=== PATIENT | female | born 1930 | race Caucasian/White ===

== ENCOUNTER → 2016-11-14 | Outpatient (REF) | payer MEDICARE ==
[~2016-11-14] MED LIST: ADV100INH INH; ALLO100T PO; AMBI5TAB PO; ASPI325T PO; BIMA01SOL OU; ELIQ2.5T PO; INSUDET SC; INSULANT SC; LASI20TA PO; LIPI10TA PO; METO25TA74 PO; MICA80TA PO; NORCOTAB PO; PREG50CA PO; PRIL20CA9 PO; PROT1TAB2 PO; SERO1TAB3 PO; SEVE40CA PO; SITA50TAB PO; TIMO5OPG OU; TIOT18INH INH; TRAM37.53 PO; XANA0.25 PO; XOPEAER INH
[2016-11-14 13:06] LABS: MEAN CORPUSCULAR HEMOGLOBIN 33.9 pg (27.0-33.0); MEAN CORPUSCULAR HGB CONC 34.5 g/dl (32.0-36.5); MEAN CORPUSCULAR VOLUME 98.1 fl (80.0-96.0); RED CELL DISTRIBUTION WIDTH 12.6 % (11.5-14.5); WHITE BLOOD COUNT 10.8 K/mm3 (4.0-10.0)
[2016-11-14 13:26] LABS: ALBUMIN 3.8 GM/DL (3.2-5.2); ALBUMIN/GLOBULIN RATIO 1.06 (1.00-1.93); BILIRUBIN,TOTAL 0.8 MG/DL (0.2-1.0); CALCIUM LEVEL 9.4 MG/DL (8.8-10.2); CREATININE FOR GFR 1.3 MG/DL (0.55-1.02); GLOMERULAR FILTRATION RATE 41.2 (>32); TOTAL PROTEIN 7.4 GM/DL (6.4-8.2)
== END | disposition home or self-care (01) ==
LOC: SKLAB6 08:00
DX: I48.91 Unspecified atrial fibrillation (principal); G30.9 Alzheimer's disease, unspecified; N39.0 Urinary tract infection, site not specified; F02.80 Dementia in other diseases classified elsewhere, unspecified severity, without behavioral disturbance, psychotic disturbance, mood disturbance, and anxiety

== ENCOUNTER → 2016-11-15 | Outpatient (REF) | payer MEDICARE ==
[~2016-11-15] MED LIST changes: +PRIL20CA PO; -PRIL20CA9 PO
== END | disposition home or self-care (01) ==
LOC: SKLAB6 10:30
DX: R05 Cough (principal)

== ENCOUNTER → 2016-11-15 | Outpatient (REF) | payer MEDICARE ==
[2016-11-15 08:52] LABS: MEAN CORPUSCULAR HEMOGLOBIN 33.1 pg (27.0-33.0); MEAN CORPUSCULAR HGB CONC 33.9 g/dl (32.0-36.5); MEAN CORPUSCULAR VOLUME 97.6 fl (80.0-96.0); RED CELL DISTRIBUTION WIDTH 13.5 % (11.5-14.5); WHITE BLOOD COUNT 9.2 K/mm3 (4.0-10.0)
[2016-11-15 09:23] LABS: CALCIUM LEVEL 8.6 MG/DL (8.8-10.2); CREATININE FOR GFR 1.17 MG/DL (0.55-1.02); GLOMERULAR FILTRATION RATE 46.6 (>32); POTASSIUM SERUM 3.5 MEQ/L (3.5-5.1)
== END ==
LOC: SKLAB6 07:00
DX: G30.9 Alzheimer's disease, unspecified (principal)

== ENCOUNTER → 2016-11-19 | Outpatient (REF) ==
[~2016-11-19] MED LIST changes: -PRIL20CA PO; +PRIL20CA9 PO
== END ==
LOC: SKLAB6 19:25
DX: R05 Cough (principal)

== ENCOUNTER → 2016-11-19 | Outpatient (REF) | payer MEDICARE ==
[2016-11-19 22:05] LABS: MEAN CORPUSCULAR HEMOGLOBIN 32.7 pg (27.0-33.0); MEAN CORPUSCULAR HGB CONC 33.3 g/dl (32.0-36.5); MEAN CORPUSCULAR VOLUME 98.1 fl (80.0-96.0); RED CELL DISTRIBUTION WIDTH 13.4 % (11.5-14.5); WHITE BLOOD COUNT 20.6 K/mm3 (4.0-10.0)
[2016-11-19 22:26] LABS: CALCIUM LEVEL 9.8 MG/DL (8.8-10.2); CREATININE FOR GFR 1.24 MG/DL (0.55-1.02); GLOMERULAR FILTRATION RATE 43.6 (>32); POTASSIUM SERUM 3.4 MEQ/L (3.5-5.1)
== END ==
LOC: SKLAB6 21:27
DX: R50.9 Fever, unspecified (principal); E86.0 Dehydration; R41.82 Altered mental status, unspecified

== ENCOUNTER → 2016-11-19 | Outpatient (CLI) | payer MEDICARE ==
--- NOTE | 2016-11-19 23:50 | REPUSA ---
Clinical history: Congestion. Comparison: None. Findings: The mediastinum and cardiac silhouette are within normal limits. There is minimal left lowe r lobe infiltrate The lungs are clear. No pleural effusion or pneumothorax is seen. The osseous struc tures and soft tissues are unremarkable. Impression: Minimal left lower lobe infiltrate.
== END ==
LOC: SKLAB6 09:23
DX: R05 Cough (principal); R50.9 Fever, unspecified; E86.0 Dehydration; R41.82 Altered mental status, unspecified

== ENCOUNTER → 2016-11-20 | Outpatient (REF) | LOC: SKLAB6 16:58 | DX: R50.9 Fever, unspecified (principal); E86.0 Dehydration; R05 Cough ==

== ENCOUNTER → 2016-11-21 | Outpatient (REF) | payer MEDICARE ==
--- NOTE | 2016-11-21 12:27 | REP ---
RIGHT KNEE, FOUR VIEWS: HISTORY: Pain. There is no acute fracture or dislocation. There is narrowing of the joint spaces with associated osteophyte formation. Chondrocalcinosis is present. IMPRESSION: Degenerative change as described above. Signed by Ted Joel MD 11/21/2016 12:32 P
--- NOTE | 2016-11-21 12:28 | REP ---
RIGHT ANKLE, FOUR VIEWS: HISTORY: Pain. There is no acute fracture or dislocation. The joint space is normal in appearance. IMPRESSION: There is no acute fracture or dislocation. Signed by Ted Joel MD 11/21/2016 12:32 P
--- NOTE | 2016-11-21 12:31 | REP ---
RIGHT FOOT, FOUR VIEWS: HISTORY: Pain. There is no acute fracture or dislocation. There is narrowing of the first metatarsophalangeal joint space. IMPRESSION: Degenerative change as described above. Signed by Ted Joel MD 11/21/2016 12:32 P
--- NOTE | 2016-11-21 15:49 | REP ---
RIGHT FEMUR, TWO VIEWS: HISTORY: Pain. There is no acute fracture or dislocation. There is narrowing of the hip joint space. There is narrowing of the knee joint space with associated osteophyte formation. Chondrocalcinosis is present. An osteophyte is present on the patella. IMPRESSION: Degenerative change as described above. Signed by Ted Joel MD 11/21/2016 04:06 P
--- NOTE | 2016-11-21 15:50 | REP ---
RIGHT HIP, THREE VIEWS: HISTORY: Pain. There is no acute fracture or dislocation. There is narrowing of the joint space. A calcified density is present lateral to the femoral head. This represents ligamentous or tendon calcification. IMPRESSION: Degenerative change as described above. Signed by Ted Joel MD 11/21/2016 04:06 P
== END ==
LOC: SKLAB6 13:00
DX: M79.604 Pain in right leg (principal)

== ENCOUNTER → 2016-12-09 | Outpatient (REF) | LOC: SKLAB6 13:00 | DX: R19.7 Diarrhea, unspecified (principal) ==

== ENCOUNTER → 2016-12-13 | Outpatient (REF) | payer MEDICARE ==
[2016-12-13 08:36] LABS: MEAN CORPUSCULAR HEMOGLOBIN 32.9 pg (27.0-33.0); MEAN CORPUSCULAR HGB CONC 33.2 g/dl (32.0-36.5); MEAN CORPUSCULAR VOLUME 99.1 fl (80.0-96.0); WHITE BLOOD COUNT 6.5 K/mm3 (4.0-10.0)
[2016-12-13 08:55] LABS: ALBUMIN 2.9 GM/DL (3.2-5.2); ALBUMIN/GLOBULIN RATIO 0.94 (1.00-1.93); BILIRUBIN,TOTAL 0.8 MG/DL (0.2-1.0); CALCIUM LEVEL 8.8 MG/DL (8.8-10.2); CREATININE FOR GFR 0.94 MG/DL (0.55-1.02); POTASSIUM SERUM 4.1 MEQ/L (3.5-5.1)
== END ==
LOC: SKLAB6 07:00
DX: E11.9 Type 2 diabetes mellitus without complications (principal)

== ENCOUNTER → 2017-01-10 | Outpatient (REF) | payer MEDICARE ==
[2017-01-10 09:31] LABS: MEAN CORPUSCULAR HEMOGLOBIN 31.8 pg (27.0-33.0); MEAN CORPUSCULAR HGB CONC 32.4 g/dl (32.0-36.5); RED CELL DISTRIBUTION WIDTH 13.4 % (11.5-14.5); WHITE BLOOD COUNT 9.4 K/mm3 (4.0-10.0)
[2017-01-10 09:58] LABS: CREATININE FOR GFR 1.06 MG/DL (0.55-1.02); GLOMERULAR FILTRATION RATE 52.2 (>32); POTASSIUM SERUM 3.9 MEQ/L (3.5-5.1)
== END ==
LOC: SKLAB6 07:00
DX: I48.91 Unspecified atrial fibrillation (principal); G30.9 Alzheimer's disease, unspecified

== ENCOUNTER → 2017-02-14 | Outpatient (REF) | payer MEDICARE ==
[2017-02-14 08:35] LABS: MEAN CORPUSCULAR HEMOGLOBIN 32.4 pg (27.0-33.0); MEAN CORPUSCULAR HGB CONC 33.3 g/dl (32.0-36.5); MEAN CORPUSCULAR VOLUME 97.3 fl (80.0-96.0); RED CELL DISTRIBUTION WIDTH 13.1 % (11.5-14.5); WHITE BLOOD COUNT 6.2 K/mm3 (4.0-10.0)
[2017-02-14 08:49] LABS: ANION GAP 8 MEQ/L (8-16); BLOOD UREA NITROGEN 19 MG/DL (7-18); CALCIUM LEVEL 9.2 MG/DL (8.8-10.2); CARBON DIOXIDE LEVEL 29 MEQ/L (21-32); CHLORIDE LEVEL 106 MEQ/L (98-107); CREATININE FOR GFR 0.79 MG/DL (0.55-1.02); GLOMERULAR FILTRATION RATE > 60.0 (>32); GLUCOSE, FASTING 107 MG/DL (83-110); POTASSIUM SERUM 3.8 MEQ/L (3.5-5.1); SODIUM LEVEL 143 MEQ/L (136-145)
== END ==
LOC: SKLAB6 07:00
DX: I48.91 Unspecified atrial fibrillation (principal); G30.9 Alzheimer's disease, unspecified; Z79.899 Other long term (current) drug therapy

== ENCOUNTER → 2017-02-20 | Outpatient (REF) | payer MEDICARE ==
[2017-02-20 12:10] LABS: MEAN CORPUSCULAR HEMOGLOBIN 32.8 pg (27.0-33.0); MEAN CORPUSCULAR HGB CONC 33.6 g/dl (32.0-36.5); MEAN CORPUSCULAR VOLUME 97.5 fl (80.0-96.0); RED CELL DISTRIBUTION WIDTH 13.2 % (11.5-14.5); WHITE BLOOD COUNT 5.9 K/mm3 (4.0-10.0)
[2017-02-20 13:01] LABS: CALCIUM LEVEL 8.2 MG/DL (8.8-10.2); CREATININE FOR GFR 1.03 MG/DL (0.55-1.02); POTASSIUM SERUM 3.8 MEQ/L (3.5-5.1)
== END ==
LOC: SKLAB6 13:00
DX: A41.9 Sepsis, unspecified organism (principal)

== ENCOUNTER → 2017-03-14 | Outpatient (REF) | payer MEDICARE ==
[2017-03-14 09:11] LABS: MEAN CORPUSCULAR HEMOGLOBIN 33.9 pg (27.0-33.0); MEAN CORPUSCULAR HGB CONC 33.4 g/dl (32.0-36.5); MEAN CORPUSCULAR VOLUME 101.4 fl (80.0-96.0); RED CELL DISTRIBUTION WIDTH 13.2 % (11.5-14.5); WHITE BLOOD COUNT 8.5 K/mm3 (4.0-10.0)
[2017-03-14 09:40] LABS: ANION GAP 6 MEQ/L (8-16); BLOOD UREA NITROGEN 24 MG/DL (7-18); CALCIUM LEVEL 9.1 MG/DL (8.8-10.2); CARBON DIOXIDE LEVEL 32 MEQ/L (21-32); CHLORIDE LEVEL 105 MEQ/L (98-107); CREATININE FOR GFR 0.93 MG/DL (0.55-1.02); GLOMERULAR FILTRATION RATE > 60.0 (>32); GLUCOSE, FASTING 55 MG/DL (83-110); POTASSIUM SERUM 3.7 MEQ/L (3.5-5.1); SODIUM LEVEL 143 MEQ/L (136-145)
== END ==
LOC: SKLAB6 07:00
DX: G30.9 Alzheimer's disease, unspecified (principal)

== ENCOUNTER → 2017-06-03 | Outpatient (CLI) | payer MEDICARE ==
[~2017-06-03] MED LIST changes: +LEVAINH INH; +METO1TAB32 PO; -METO25TA74 PO; -XOPEAER INH
== END ==
LOC: M LAB 08:04
DX: R07.9 Chest pain, unspecified (principal); Z53.9 Procedure and treatment not carried out, unspecified reason

== ENCOUNTER → 2017-06-03 | Outpatient (REF) | payer MEDICARE ==
[2017-06-03 07:53] LABS: MEAN CORPUSCULAR HEMOGLOBIN 34.6 pg (27.0-33.0); MEAN CORPUSCULAR VOLUME 101.6 fl (80.0-96.0); RED CELL DISTRIBUTION WIDTH 13.8 % (11.5-14.5); WHITE BLOOD COUNT 8.6 K/mm3 (4.0-10.0)
[2017-06-03 08:13] LABS: ANION GAP 7 MEQ/L (8-16); BLOOD UREA NITROGEN 19 MG/DL (7-18); CALCIUM LEVEL 8.7 MG/DL (8.8-10.2); CARBON DIOXIDE LEVEL 31 MEQ/L (21-32); CHLORIDE LEVEL 100 MEQ/L (98-107); CREATININE FOR GFR 0.88 MG/DL (0.55-1.02); GLOMERULAR FILTRATION RATE > 60.0 (>32); GLUCOSE, FASTING 253 MG/DL (83-110); POTASSIUM SERUM 4.2 MEQ/L (3.5-5.1); SODIUM LEVEL 138 MEQ/L (136-145)
--- NOTE | 2017-06-03 10:36 | REP ---
REASON: Chest pain. COMPARISON: None. There is a patchy opacity in the right lower lobe. The lung cuello are otherwise clear and unchanged from the prior exam of 11/19/2016, a portable exam. The heart is not enlarged and the pleural angles are sharp. There is no change in the osseous structures. Spinal degenerative changes are note status quo. IMPRESSION: Right lower lobe pneumonia. Signed by Karl Ronquillo DO 06/03/2017 10:58 A
== END ==
LOC: SKLAB6 07:00
DX: J18.9 Pneumonia, unspecified organism (principal); R07.9 Chest pain, unspecified

== ENCOUNTER → 2017-06-13 | Outpatient (REF) | payer MEDICARE ==
[2017-06-13 10:40] LABS: ALBUMIN 3.5 GM/DL (3.2-5.2); ALKALINE PHOSPHATASE 96 U/L (45-117); ALT/SGPT 25 U/L (12-78); ANION GAP 9 MEQ/L (8-16); AST/SGOT 17 U/L (15-37); BLOOD UREA NITROGEN 17 MG/DL (7-18); CALCIUM LEVEL 8.8 MG/DL (8.8-10.2); CARBON DIOXIDE LEVEL 29 MEQ/L (21-32); CHLORIDE LEVEL 98 MEQ/L (98-107); CHOLESTEROL LEVEL 162 MG/DL (<200); CREATININE FOR GFR 0.73 MG/DL (0.55-1.02); GLOMERULAR FILTRATION RATE > 60.0 (>32); GLUCOSE, FASTING 300 MG/DL (83-110); POTASSIUM SERUM 3.9 MEQ/L (3.5-5.1); SODIUM LEVEL 136 MEQ/L (136-145); TRIGLYCERIDES LEVEL 116 MG/DL (<150)
== END ==
LOC: SKLAB6 07:00
DX: I50.9 Heart failure, unspecified (principal); I48.91 Unspecified atrial fibrillation; I12.9 Hypertensive chronic kidney disease with stage 1 through stage 4 chronic kidney disease, or unspecified chronic kidney disease

== ENCOUNTER → 2017-06-30 | Outpatient (REF) | payer MEDICARE ==
[2017-06-30 21:26] LABS: MEAN CORPUSCULAR HEMOGLOBIN 34.1 pg (27.0-33.0); MEAN CORPUSCULAR HGB CONC 33.7 g/dl (32.0-36.5); MEAN CORPUSCULAR VOLUME 101.3 fl (80.0-96.0); RED CELL DISTRIBUTION WIDTH 13.1 % (11.5-14.5)
[2017-06-30 21:39] LABS: ALBUMIN 3.3 GM/DL (3.2-5.2); ALBUMIN/GLOBULIN RATIO 0.87 (1.00-1.93); BILIRUBIN,TOTAL 1.6 MG/DL (0.2-1.0); CALCIUM LEVEL 9.4 MG/DL (8.8-10.2); CREATININE FOR GFR 1.03 MG/DL (0.55-1.02); GLOMERULAR FILTRATION RATE 53.8 (>32); POTASSIUM SERUM 3.6 MEQ/L (3.5-5.1); TOTAL PROTEIN 7.1 GM/DL (6.4-8.2)
== END ==
LOC: SKLAB6 20:26 → EDSTATUS 07-17 14:51
DX: R50.9 Fever, unspecified (principal)

== ENCOUNTER → 2017-06-30 | Outpatient (REF) | payer MEDICARE ==
--- NOTE | 2017-07-01 | REPUSA ---
Clinical history: Fever. Comparison: 11/19/2016. Findings: The mediastinum and cardiac silhouette are within normal limits. There is a focal right low er lobe infiltrate. No pleural effusion or pneumothorax is seen. The osseous structures and soft tiss ues are unremarkable. Impression: Focal right lower lobe infiltrate.
== END ==
LOC: SKLAB6 23:10
DX: R50.9 Fever, unspecified (principal)

== ENCOUNTER → 2017-09-23 | Outpatient (REF) | payer MEDICARE | LOC: SKLAB6 07:00 | DX: R53.83 Other fatigue (principal) ==